=== PATIENT | male | born 1955 | race Caucasian/White ===

== ENCOUNTER 2021-03-31 15:54 | Emergency (ER) | payer OTHER, SELFPAY ==
--- NOTE | ~2021-03-31 | XR_ITS ---
XR wrist LT min 3V DATE: 03/31/2021 16:16 INDICATION: Fall this morning. Left wrist pain. TECHNIQUE: 4 views COMPARISON: None FINDINGS: There is a small slightly dorsally displaced dorsal distal radial extra-articular cortical fracture No other fracture or dislocation. Radial ulnar joint spurring. Prominent osteoarthritis at the first carpometacarpal joint. Diffuse osteopenia. IMPRESSION: Minimally dorsally displaced distal radial dorsal cortical extra-articular fracture Osteoarthritis at first carpometacarpal joint Osteopenia Reviewed, dictated and finalized at location A. IMPRESSION: Minimally dorsally displaced distal radial dorsal cortical extra-ar ticular fracture Osteoarthritis at first carpometacarpal joint Osteopenia
[2021-03-31 16:04] VITALS: BP 142/87; PULSE 61; RESP 16; TEMP 36.3; O2SAT 99
--- NOTE | 2021-03-31 17:02 | ED.GENADULT ---
HPI - General Adult General Chief complaint: Extremity Injury, Upper Stated complaint: fell left wrist pain Time Seen by Provider: 03/31/21 17:02 Source: patient and RN notes reviewed Mode of arrival: ambulatory Limitations: no limitations History of Present Illness HPI narrative: 65-year-old male presents with complaints of left wrist pain for the past 9 hours. Tacho reports falling off the porch attempting to break the fall hand with left hand, bending it backwards causing injury to left hand. Advil (last taken at 09:00 AM today), marshall wrap, and ice with little relief. No numbness or tingling. No radiating pain. No swelling. No immobility, suspected foreign body, or abuse. Exacerbating factors consist of movement. Some relieving factor is rest and pain medication. The dominant hand is the Right hand. Remains active. The patient reports he has not been diagnosed with COVID-19. The patient reports he is not waiting for the results of a COVID-19 lab test. The patient reports he does not have chills, weakness, or fatigue. The patient reports he does not have a new or worsening cough or shortness of breath. Denies chest pain. The patient reports he does not have any rhinorrhea, congestion, loss of taste or smell, sore throat, nausea, vomiting, abdominal pain, and diarrhea. Tolerating po intake well. Denies recent traveling. Denies concerns for COVID-19 or exposures. At this time, the patient is not suspected of having COVID-19. Some parts of this dictation were generated by voice recognition software and may contain typographical and/or grammatical inaccuracies. Related Data Home Medications Medication Instructions Recorded Confirmed pantoprazole [Protonix] 20 mg PO QAM 03/31/21 03/31/21 simvastatin 40 mg PO DAILY 03/31/21 03/31/21 verapamil 240 mg PO DAILY 03/31/21 03/31/21 Allergies Allergy/AdvReac Type Severity Reaction Status Date / Time No Known Allergies Allergy Unverified 02/22/16 08:17 Review of Systems Review of Systems: Narrative: CONSTITUTIONAL: Denies fever, chills, sweats. EYES: Denies visual changes, redness, discharge. ENT: Denies rhinorrhea, congestion, sore throat, otalgia. CARDIOVASCULAR: Denies chest pain, palpitations, edema. RESPIRATORY: Denies dyspnea, wheezing, cough. GASTROINTESTINAL: Denies abdominal pain, nausea, vomiting, diarrhea. SKIN: Denies rash or itching. MUSCULOSKELETAL: Denies acute back pain or myalgia. Complains of left wrist pain. NEUROLOGIC: Denies numbness or focal weakness. PSYCHIATRIC: Denies anxiety or depression. All other systems reviewed & are unremarkable except as noted in HPI and below. [facility] Past Medical History Medical History (Updated 04/09/21 @ 02:34 by ARIANNA Chapin) Ex-smoker for more than 1 year Hernia Hypertension Mild hypercholesterolemia Surgical History Surgical History (Updated 04/04/21 @ 09:28 by Gianna Alarcon) History of colon resection (~10/2019) October 2019 History of hernia surgery (~12/2018) Left inguinal History of spinal surgery (~11/2016) Family History Family History (Updated 03/31/21 @ 17:17 by ARIANNA Chapin) Father Hypertension Mother Smoker in home COPD (chronic obstructive pulmonary disease) Social History Social History (Updated 03/31/21 @ 17:18 by ARIANNA Chapin) Smoking status: Former smoker Tobacco type: cigarettes Second hand tobacco smoke exposure: Yes (spouse, mainly smokes outside in garage) Smoking end date: 11/12/70 Alcohol intake: former Substance use: never Substance use type: does not use Gender identity (if verbalized by the patient): Male Comments At time of signature, agree with the nurse past medical, surgical, social, and family history. There is no relevant family history pertinent to the presenting complaint. Exam Narrative: Exam Narrative: GENERAL: This is a well-nourished, well-developed patient, in no apparent distress. Speak
== END 2021-03-31 17:29 | disposition home or self-care (01) ==
PROVIDERS: Emergency Provider Nurse Practitioner Family
DX: S52.551A Other extraarticular fracture of lower end of right radius, initial encounter for closed fracture (principal); W17.89XA Other fall from one level to another, initial encounter; Z87.891 Personal history of nicotine dependence; I10 Essential (primary) hypertension; E78.00 Pure hypercholesterolemia, unspecified
CPT/HCPCS: 29125; 73110; 99214; A4565; G0463

== ENCOUNTER 2021-09-13 08:25 | Emergency (ER) | payer OTHER, SELFPAY ==
--- NOTE | ~2021-09-13 | XR_ITS ---
XR chest 2V 09/13/2021 08:51 Indication: Chest pain Procedure: 2 view chest Comparison: No prior studies for comparison. Findings: Heart size normal. No focal air space disease, pulmonary edema, pleural effusion or suspect ed pneumothorax. No acute osseous abnormality. Impression: 1: No acute cardiopulmonary disease. Reviewed, dictated and finalized at location A. SYSTEMS ENGINEER Impression: 1: No acute cardiopulmonary disease.
[2021-09-13 08:27] VITALS: BP 176/86; PULSE 64; RESP 18; TEMP 36.1; O2SAT 100
--- NOTE | 2021-09-13 08:27 | ECG_ITS ---
Measurements Intervals [place] Rate: 59 P: 64 MN: 172 QRS: 74 QRSD: 86 T: 58 QT: 363 QTc: 361 Interpretive Statements SINUS BRADYCARDIA CANNOT RULE OUT SEPTAL INFARCT, AGE INDETERMINATE ABNORMAL ECG Electronically Signed On 09-13-2021 8:51:53 OFFICE EXECUTIVE by Mahin Busch D.O.
[2021-09-13 08:52] LABS: Basophils Percent Auto 0.4 % (0.2-1.2); Eosinophils Absolute Auto 0.1 K/mm3 (0-0.3); Hematocrit 49.2 % (42.0-52.0); Hemoglobin 16.6 g/dL (14.0-18.0); Immature Granulocyte Absolute 0.03 K/mm3 (0.00-0.031); Immature Granulocyte Percent A 0.4 % (0-0.5); Lymphocytes Absolute Auto 2.69 K/mm3 (0.9-3.2); Lymphocytes Percent Auto 39.5 % (18.3-44.2); Mean Corpuscular HGB Conc 33.7 g/dl (32-36); Mean Corpuscular Hemoglobin 32.7 pg (26-34); Mean Corpuscular Volume 96.9 fl (80-100); Mean Platelet Volume 10.7 fl (7.4-10.4); Monocytes Absolute Auto 0.7 K/mm3 (0.1-0.6); Monocytes Percent Auto 10.9 % (2.6-8.5); Neutrophils Absolute Auto 3.3 K/mm3 (1.3-6.7); Neutrophils Percent Auto 47.8 % (45.5-73.1); Platelet Count Result 219 k/mm3 (150-375); Red Blood Count 5.08 M/mm3 (4.6-6.20); Red Cell Distribution Width 12.6 % (11.5-14.5); White Blood Count 6.8 K/mm3 (4.5-10.0)
[2021-09-13 09:12] LABS: Alanine Aminotransferase 22 U/L (4-50); Albumin Level 4.6 g/dL (3.5-5.1); Alkaline Phosphatase 49 U/L (38-126); Anion Gap 11 mmol/L (8-16); Aspartate Amino Transferase 29 U/L (17-59); Bilirubin,Total 0.6 mg/dL (0.2-1.3); Blood Urea Nitrogen 13 mg/dL (9-20); Calcium 9.5 mg/dL (8.4-10.2); Carbon Dioxide 22 mmol/L (22-30); Chloride 103 mmol/L (98-107); Estimated CRCL calculation 92 ml/min; Estimated Glomerular Filt Rate > 60; Glucose 103 mg/dL (65-110); Lipase 76 U/L (23-300); Sodium 136 mmol/L (137-145)
[2021-09-13 09:17] LABS: INR 0.9; Prothrombin Time 11.8 Seconds (11.1-14.7)
[2021-09-13 09:18] LABS: Partial Thromboplastin Time 25.3 SECONDS (22.3-36.8)
[2021-09-13 09:32] LABS: Troponin I < 0.012 ng/mL (0.000-0.034)
[2021-09-13 10:27] VITALS: BP 157/92; PULSE 64; RESP 11; O2SAT 100
[2021-09-13 11:03] VITALS: BP 146/85; PULSE 61; RESP 18; O2SAT 100
--- NOTE | 2021-09-13 11:20 | ED.CHESTPAIN ---
HPI - Chest Pain General Chief Complaint: Chest Pain Stated Complaint: Chest Pain/Anxiety Time Seen by Provider: 09/13/21 10:46 Source: patient Mode of arrival: ambulatory Limitations: no limitations History of Present Illness HPI narrative: This is a 66-year-old male that presents to the emergency department for chest pain present since last night. Reports intermittent, brief episodes of chest pain. The pain feels like a fullness in his chest. The pain was radiating to his jaw at times. He seems to have some relief of the pain with reflux medications. Denies fever, cough, shortness of breath, lower extremity edema, abdominal pain, or vomiting. Related Data Home Medications Medication Instructions Recorded Confirmed pantoprazole [Protonix] 20 mg PO QAM 03/31/21 04/24/21 simvastatin 40 mg PO DAILY 03/31/21 04/24/21 verapamil 240 mg PO DAILY 03/31/21 04/24/21 Allergies Allergy/AdvReac Type Severity Reaction Status Date / Time No Known Allergies Allergy Unverified 02/22/16 08:17 Review of Systems Review of Systems: CONSTITUTIONAL: Denies fever CARDIOVASCULAR: Reports chest pain. Denies palpitations, or edema. RESPIRATORY: Denies cough or dyspnea. GASTROINTESTINAL: Denies abdominal pain, nausea, vomiting PSYCHIATRIC: Reports anxiety All systems reviewed & are unremarkable except as noted in HPI and below PMFSH Past Medical History Medical History Ex-smoker for more than 1 year Hernia Hypertension Mild hypercholesterolemia Surgical History Surgical History History of colon resection (~10/2019) October 2019 History of hernia surgery (~12/2018) Left inguinal History of spinal surgery (~11/2016) Family History Family History Father Hypertension Mother Smoker in home COPD (chronic obstructive pulmonary disease) Social History Social History Smoking status: Former smoker Tobacco type: cigarettes Second hand tobacco smoke exposure: Yes (spouse, mainly smokes outside in garage) Smoking end date: 11/12/70 Alcohol intake: former Substance use: never Substance use type: does not use Gender identity (if verbalized by the patient): Male Sexual Orientation (if Verbalized by the Patient): Straight or Heterosexual Exam Narrative: GENERAL: Well-appearing, well-nourished, and in no acute distress. HEAD: Normocephalic, atraumatic. EYES: EOMI. ENT: Mucous membranes moist. Oropharynx without tonsillar hypertrophy exudate or other lesions. NECK: Supple. No adenopathy or masses. No carotid bruits or JVD CHEST: Clear to auscultation. No respiratory distress. No wheezes rales or rhonchi HEART: Regular rate and rhythm. No murmur heard. Normal peripheral pulses. ABDOMEN: Soft, nontender, nondistended, normal active bowel sounds. EXTREMITIES: Normal range of motion. No edema. SKIN: Warm, dry, no rash. NEURO: No focal deficits. Alert and oriented x3. PSYCH: Normal mood and affect Course Consultations Consultation #1: Spoke with patient's primary about work-up who will ensure close follow-up Date: 09/13/21 Time: 13:00 Vital Signs Vital signs: Vital Signs Temperature 97 F L 09/13/21 08:27 Pulse Rate 64 09/13/21 08:27 Respiratory Rate 18 09/13/21 08:27 Blood Pressure 176/86 H 09/13/21 08:27 Pulse Oximetry 100 09/13/21 08:27 Temperature 97 F L 09/13/21 08:27 Pulse Rate 61 09/13/21 11:03 Respiratory Rate 18 09/13/21 11:03 Blood Pressure 146/85 H 09/13/21 11:03 Pulse Oximetry 100 09/13/21 11:03 MDM - Chest Pain MDM Narrative Medical decision making narrative: Patient presents the emergency department for atypical chest pain present since yesterday. His vitals are stable. CBC and metabolic panel without concerning findings. EKG without acute
[2021-09-13] MEDS: SODIUM CHLORIDE 0.9% IV 500 ML 999 ML IV CONT (11:40)
[2021-09-13] MEDS: PANTOPRAZOLE SODIUM IV 40 MG VIAL IV PUSH (11:40)
[2021-09-13] MEDS: ONDANSETRON INJ 4 MG/2 ML VIAL IV PUSH (11:40)
[2021-09-13 12:17] LABS: Troponin I < 0.012 ng/mL (0.000-0.034)
[2021-09-13 13:29] VITALS: BP 142/85; PULSE 66; RESP 18; O2SAT 99
== END 2021-09-13 13:30 | disposition home or self-care (01) ==
PROVIDERS: Emergency Provider Emergency Medicine; PCP Family Medicine
DX: R07.89 Other chest pain (principal); I10 Essential (primary) hypertension; E78.00 Pure hypercholesterolemia, unspecified; Z79.899 Other long term (current) drug therapy; Z87.891 Personal history of nicotine dependence; Z90.49 Acquired absence of other specified parts of digestive tract
CPT/HCPCS: 36415; 71046; 80053; 83690; 84484; 85025; 85610; 85730; 93005; 96361; 96374; 96375; 99284; C9113; J2405; J7040